=== PATIENT | female | born 1940 | race Caucasian/White ===

== ENCOUNTER 2016-07-15 23:53 | Inpatient (IN) | payer OTHER ==
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
--- NOTE | ~2016-07-15 | DS ---
Discharge Summary [facility] [address] [place]. [address] NAME: HELEN EMMANUEL : 44 STATUS : DIS IN PAT#: [id number] AGE: 76 ADM/REG DATE : 07/16/16 MR#: [id number] REPORT SERV DATE: 07/27/16 DICTATED BY: NIKCIE GRANDA DATE: 07/26/16 REPORT STATUS : Draft TRANSCRIBED BY: MODL DATE: 07/26/16 ADMISSION DATE: 07/16/2016 DISCHARGE DATE: 07/26/2016 FINAL DIAGNOSES: Status post L4-L5 laminectomy, L3-L4 hemilaminectomy for spinal stenosis, status post acute chronic kidney disease, hypertension, status post orthostasis, diabetes, obstructive sleep apnea, hyperlipidemia, obesity, anxiety, and depression. HOSPITAL COURSE: Please refer to the H and P done by Dr. Proctor dated on 07/16/2016 and the interim discharge summary done by Dr. Colón dated on 07/25/2016. Since I took care of this patient, the patient's renal function is back to her baseline and her blood pressure is back to her baseline. Her diabetes is better controlled than on admission, and the patient underwent operation ready. We got clearance from Dr. Kumar for transfer to rehab, and we finally got [facility] [place] to approve her to stay. The patient will be going there with the above diagnosis. The patient will be on the following medications. Norvasc 5 mg a day, Lipitor 40 mg at bedtime, Colace 100 mg three times a day, Cymbalta 60 mg a day, gabapentin 600 mg three times a day, iron 325 mg a day, subcu insulin protocol level 2, NovoLog 8 units before meals, Lumigan one drop at bedtime, Lidoderm patches at affected area daily, lisinopril 40 mg a day, Zyrtec 10 mg a day, magnesium oxide 250 mg a day, Singulair 10 mg a day, multivitamin once a day, Dexilant 60 mg a day, Mirapex 0.125 mg at bedtime, Mysoline 50 mg twice a day, Florastor capsules one capsule a day, Levemir 30 units at bedtime, Combivent four times a day as needed, vitamin C daily 1000 units, vitamin D 2000 units a day, artificial tears as needed, Flonase two sprays a day as needed, melatonin 1 mg at bedtime as needed, and a prescription was done by Dr. Kumar for oxycodone 5 mg one tab q.4 hours p.r.n. pain. The patient will follow up with the rehab doctor, then follow up with [facility] after rehab discharge. She will follow up with Dr. Kumar in two weeks. This has been explained to the patient and she agreed and understood the plan. RICARDO/MAKENNA Nickie Granda M.D. / [id number] CC: Lety Mcarthur M.D.
--- NOTE | ~2016-07-15 | OP ---
Record Of Operation [facility] [address] [place]. [address] NAME: HELEN EMMANUEL : 42 STATUS : ADM IN PAT#: [id number] AGE: 76 ADM/REG DATE : 07/16/16 MR#: [id number] REPORT SERV DATE: 07/22/16 DICTATED BY: DEMARCUS SHARIF DATE: 07/22/16 REPORT STATUS : Draft TRANSCRIBED BY: MODL DATE: 07/22/16 DATE OF PROCEDURE: 07/22/2016 PREOPERATIVE DIAGNOSIS: 1. Severe spinal stenosis of L4-5 requiring bilateral facetectomy. 2. Iatrogenic instability secondary to severe spinal stenosis of L4-5 requiring bilateral facetectomy. 3. Severe spinal stenosis, right L5-S1. POSTOPERATIVE DIAGNOSIS: 1. Severe spinal stenosis of L4-5 requiring bilateral facetectomy. 2. Iatrogenic instability secondary to severe spinal stenosis of L4-5 requiring bilateral facetectomy. 3. Severe spinal stenosis, right L5-S1. PROCEDURES: 1. Microscopic and navigation assisted surgery. 2. Left and right L4-5 hemilaminectomy, foraminotomy, and facetectomy. 3. Roderick posterior column osteotomy. 4. Transforaminal diskectomy. 5. Anterior interbody Capstone cage insertion. 6. Posterolateral interbody fusion with local bone graft allograft. 7. Posterior percutaneous instrumentation with Voyager system L4-5. 8. Right L5-S1 hemilaminotomy and foraminotomy. SURGEON: Demarcus Sharif D.O. CAR SANDER: Derek Neal. ANESTHESIA: General. BLOOD LOSS: 125 mL. INDICATION FOR SURGERY: Indications for surgery and risks were explained. Briefly, this is a 76-year-old female with severe intractable back pain and leg pains that is extremely limited in her any attempts to walk. She has an MRI showing complete obliteration of the spinal canal at L4-5 due to ligamentum flavum and facet hypertrophy as well as bilateral synovial cyst. There is a significant fluid within the facet joints which is associated with instability approximately 80% of the time and clearly with the severe degree of stenosis, she still would have to have a bilateral facetectomy, thus instability would be created and need re-stabilization which will be carried out through the transforaminal diskectomy interbody fusion. Posterior instrumentation would re-provide the temporary re- stabilization until the fusion occurs. In addition, she has severe lateral recess stenosis on the right at L5-S1. The MRI report says she has moderate stenosis at L2-3 and central stenosis at L3-4 but on my review, I do not see significant central stenosis. There is mild to moderate lateral recess stenosis at L3-4 but her symptoms are much more in keeping with Record Of Operation [facility] [id number] [place]. [address] NAME: HELEN EMMANUEL : 42 STATUS : ADM IN PAT#: [id number] AGE: 76 ADM/REG DATE : 07/16/16 MR#: [id number] REPORT SERV DATE: 07/22/16 DICTATED BY: DEMARCUS SHARIF DATE: 07/22/16 REPORT STATUS : Draft TRANSCRIBED BY: MAKENNA DATE: 07/22/16 the L4-5 and S1 nerve roots. Thus she is brought to surgery for the above procedure, having failed conservative care. Prior to surgery, risks, benefits, alternatives, and expectations have been explained. Consent form has been signed. Antibiotic prophylaxis given. Neurophysiology monitoring leads inserted. The patient was brought to the operative suite. General anesthetic including endotracheal intubation was administered. Medrano catheter was placed with sterile technique. The patient was placed prone on a Shan spine frame. Bony prominences were carefully padded. Thoracolumbar spine scrubbed with Hibiclens solution. DuraPrep was painted and sterile drapes applied. Because of the complexity of surgery and the need to identify the correct level of surgery intraoperatively as well as desire to carry out the safest most precise dissection, I felt that intraoperative navigation is mandatory. A small stab wound was carried out in the left posterior superior iliac spine. A percutaneous pin with navigational frame attached was inserted in PSIS. Intraoperative CT scan with O-arm obtained, CT information used to register the navigational system. With navigational assistance, I identified initially the L5-S1 level and just right of midline, a 2 cm skin incision was carried out. A blunt navigated probe placed through the fascial muscle and docked over the interlaminar space at L5-S1. Muscle dilators were inserted followed by placement of a tubular retractor, attached to an arm mount on the table. The microscope was sterilely draped and used throughout the remainder of the procedure. With navigational assistance, I determined the amount of lamina of L5 to remove as well as the amount of medial facet joint to remove in order to reach the lateral aspect of the thecal sac. I used a 3 mm hilton bur and I removed 20% to 30% of the inferior lamina of L5 as well as 25% of the medial facet joint of L5-S1. There was severe inferior ligamentum flavum hypertrophy that was causing nerve and thecal sac impingement. The ligamentum flavum was completely removed, the medial aspect of the facet joint removed, and the thecal sac and the S1 nerve root were completely decompressed. The wound was irrigated. The retractor removed. Next I continued on the right side just lateral to the facet joint of L4-5. I created a 2.5 to 3 cm skin incision. A blunt navigated probe placed through the fascia and muscle and docked over the facet joint. Muscle dilators were inserted followed by placement of a tubular retractor attached to an arm mount on the table. The microscope was sterilely draped and used throughout the remainder of the remainder of the procedure. With navigational assistance. I determined the location of the top of the pedicle of L5 and the inferior pedicle of L4. I started lateral and dissected from lateral to medial removing the entire superior facet of L5 down to the top of the pedicle, the inferior facet of L4, the lamina of L4, and the pars interarticularis. There was extremely severe ligamentum flavum hypertrophy as well as facet hypertrophy. In addition, at the very top of the facet joint, there was a synovial cyst that was encroaching on the medial aspect of the thecal sac just above the disk space and causing a severe impingement on the thecal sac as well as the Record Of Operation [address] [place]. [address] NAME: HELEN EMMANUEL JULY : 42 STATUS : ADM IN PAT#: [id number] AGE: 76 ADM/REG DATE : 07/16/16 MR#: [id number] REPORT SERV DATE: 07/22/16 DICTATED BY: DEMARCUS SHARIF DATE: 07/22/16 REPORT STATUS : Draft TRANSCRIBED BY: MAKENNA DATE: 07/22/16 exiting L4 nerve root. The synovial cyst was removed completely. The patient then had a transforaminal diskectomy with curettes, rongeurs, and disk phillip. The exiting and traversing nerve root was completely decompressed. The wounds were irrigated. Also please note that a Roderick osteotomy posteriorly was carried out on the right side to allow some increase in overall lordosis. I then moved to the left side. I carried out another 3 cm skin incision just lateral to the facet joint. I placed a blunt navigated probe through the fascia and muscle and docked over the facet joint of L4-5. I then carried out the same identical hemilaminectomy, foraminotomy, facetectomy and removal of synovial cyst as well as the Roderick osteotomy. A transforaminal diskectomy completed. The wounds were irrigated. Intradiscal trial was carried out. The interbody space filled with local bone graft allograft and an extra-small dosage of bone protein. Capstone Cage 11 x 26 inserted through the transforaminal approach into the midline against the anterior longitudinal ligament. Some additional posterolateral interbody grafting was carried out. The retractor was then removed. Through the two previous skin incisions, I placed a percutaneous Voyager pedicle tap and screw pallet stone inserter. I tapped the pedicles and followed by placement of polyaxial Voyager screw with screw extenders at L4 and 5. The 35 mm michael was placed through the top portion of the screw extenders, reduced into the tulip of the pedicle screw. The set screws inserted and tightened with a torque wrench providing rigid stability bilaterally. Screw extenders removed. The intraoperative CT scan with O-arm repeated showing excellent position of all implants. After final irrigation, the fascia was closed with interrupted #1 Vicryl suture. The subcutaneous tissue was closed with 2-0 Vicryl sutures, 2-0 vertical mattress nylon suture used for skin closure. Sterile dressings applied. The patient returned to the supine position, awakened, extubated, taken to the recovery room in satisfactory condition, having tolerated the procedure well. HELADIO/MODGavin Demarcus Sharif D.O. / [id number] CC: Lety Brambila M.D.
--- NOTE | ~2016-07-15 | DS ---
Discharge Summary [facility] [address] [facility] [place]. [address] NAME: HELEN EMMANUEL : 42 STATUS : ADM IN [facility]#: [id number] AGE: 76 ADM/REG DATE : 07/16/16 MR#: [id number] REPORT SERV DATE: 07/25/16 DICTATED BY: MARIA GUADALUPE CARDENAS DATE: 07/24/16 REPORT STATUS : Draft TRANSCRIBED BY: MODL DATE: 07/24/16 ADMISSION DATE: 07/16/2016 DISCHARGE DATE: DIAGNOSES ON DISCHARGE: 1. Spinal stenosis status post L4 and L5 laminectomy as well as L3 and L4 hemilaminectomy for severe spinal stenoses, also foraminectomy and facetectomy performed by Dr. Demarcus Kumar on 07/22/2016. 2. Acute on chronic kidney disease, stage 3, resolved. 3. Hypertension. 4. Diabetes type 2, insulin dependent with hemoglobin A1c 8.6. 5. Hyperlipidemia. 6. Obesity. 7. Obstructive sleep apnea, on CPAP. 8. Peripheral neuropathy. 9. Chronic back pain. 10.Hyperlipidemia. 11.Morbid obesity. CONSULTANTS ON THE CASE: Dr. Demarcus Kumar, Back Surgery. PROCEDURE DONE: During this hospitalization include left and right L4-L5 hemilaminectomy, foraminectomy, and facetectomy as well as L5-S1 hemilaminectomy and facetectomy. Other tests done during this hospitalization would include an MRI of the lumbar spine on 07/17/2016 showing that the patient has severe stenosis of L4-L5 as well as L1-L2, L2-L3, L3 L4, and L5-S1. Also, the patient has had a chest x-ray, portable, on 07/15/2016 with left basilar atelectasis, showing moderate degenerative disease, hip showed no acute bone abnormalities, [id number] degenerative joint disease of the left hip. Also, the patient had UA on 07/16/2016 that has been negative. Her hemoglobin A1c was 8.6, BNP 23.2. Creatinine on admission was 2.09, and 0.35 at discharge. The patient has been ruled out for AL by serial cardiac enzymes and serial EKG. Her TSH was 1.45. HOSPITAL COURSE: This is a very pleasant 76 years old female, admitted by Dr. Omar Proctor on 07/16/2016 with dizziness, fall, and weight loss. The patient has been found to be in acute on chronic stage 3 kidney disease. For further details, please see history and physical exam of Dr. Omar Proctor. The patient has been admitted to Hospitalist Service. Her AUDI and diuretics have been withheld. She has been placed on hydration and her acute kidney injury resolved with IV fluids and holding the AUDI and Demadex. However, the patient had been complaining of severe back pain, right greater than left as well as leg pain. Apparently in the past, she has had that long history of low back pain starting in the mid adult life. After the MRI had been ordered during this hospitalization, back pain had become extremely severe and result of the MRI has shown that the patient has severe spinal stenosis. As a result, the back surgeon, Dr. Kumar had been consulted. Initially, after discussion with the patient, they tried physical therapy while she was in the hospital and observation and obviously, the patient would not be a candidate for any epidural injection and after 2 days Discharge Summary [address] [address] NAME: HELEN EMMANUEL : 44 STATUS : ADM IN PAT#: [id number] AGE: 76 ADM/REG DATE : 07/16/16 MR#: [id number] REPORT SERV DATE: 07/25/16 DICTATED BY: MARIA GUADALUPE CARDENAS DATE: 07/24/16 REPORT STATUS : Draft TRANSCRIBED BY: MAKENNA DATE: 07/24/16 of physical therapy, the patient had decided to perform surgery. On 07/22/2016, the patient was taken to the OR for re-stabilization of the L4-L5, and the patient underwent a laminectomy of the L4-L5 with hemilaminectomy, foraminectomy, facetectomy as well as L5-S1 hemilaminectomy. Postoperatively, the patient started working with the Physical Therapy. She is undergoing postop care currently. Most likely, the patient will need inpatient rehab at discharge. Her acute kidney injury has been completely resolved, and she has been restarted on her lisinopril today. CURRENT MEDICATIONS: 1. Tylenol 650 twice a day. 2. Amlodipine 5 p.o. daily. 3. Lipitor 40 p.o. at bedtime. 4. Colace 100, three times a day. 5. Also, Cymbalta 60 p.o. daily. 6. Iron sulfate 300 p.o. daily. 7. Gabapentin 600 t.i.d. 8. NovoLog sliding scale level 2. 9. Xalatan ophthalmic solution. 10.Lidoderm patch. 11.Claritin. 12.Magnesium oxide. 13.Singulair. 14.Multivitamin. 15.Protonix. 16.Mirapex. 17.Mysoline. 18.Florastor. 19.Levemir 20 units at bedtime. My partner is going to start seeing Ms. Fred Johnson from 07/26/2016. CF/MODL Maria Guadalupe Cardenas M.D. / [id number] CC: Lety Siu M.D.
--- NOTE | ~2016-07-15 | HP ---
History And Physical [place] [id number] [facility] [place]. [address] NAME: HELEN EMMANUEL : 44 STATUS : ADM Kiana PAT#: [id number] AGE: 76 ADM/REG DATE : 07/16/16 MR#: [id number] REPORT SERV DATE: 07/16/16 DICTATED BY: CORIN MEJIA DATE: 07/16/16 REPORT STATUS : Draft TRANSCRIBED BY: MODL DATE: 07/16/16 DATE OF ADMISSION: 07/16/2016 CHIEF COMPLAINT: A 76-year-old female presenting with dizziness, a fall, and weight loss. HISTORY OF PRESENTING ILLNESS: The patient's history was obtained through careful interview with patient, coupled with review of [facility] medical records. The patient states that she has been dizzy for about two days with lightheadedness. On the night of admission, she was trying to get out of her chair, felt too weak and dizzy and collapsed to the ground. She had to scoot herself into the living room to get her phone. She admits that since the beginning of May 2016 she has been going on a Slim-Fast diet and has lost about 13 pounds, but overall, she just describes a decreased appetite, but she denies any dysphagia. No abdominal pain. No nausea or vomiting. No change of bowel or bladder habit. In early May 2016, she had suffered some bronchitis and taken some antibiotics, but has not had any significant shortness of breath or cough since then. She describes chronic right-sided and middle lower back pain that radiates down her right leg, like sciatica and sometimes affects her left hip slightly as well, an aching and throbbing quality, up to 10/10 in severity, but she admits that this is a chronic recurrent condition. She describes diabetes is generally under good control, under 200. REVIEW OF SYSTEMS: Otherwise, a 14-point review of systems was obtained and was negative. PAST MEDICAL HISTORY: 1. Obstructive sleep apnea, on CPAP. 2. Diabetes. 3. Hypertension. 4. Chronic arthritis. 5. Chronic kidney disease, stage III. Baseline creatinine of 1.5. 6. Elevated cholesterol. 7. Neuropathy. 8. Fatty liver disease. 9. Gastroesophageal reflux disorder. 10.Iron deficiency anemia. 11.Neuropathy. 12.Depression. 13.Negative catheterization of the heart. PAST SURGICAL HISTORY: History And Physical [address] [place]. [address] NAME: HELEN EMMANUEL : 44 STATUS : ADM Kiana PAT#: [id number] AGE: 76 ADM/REG DATE : 07/16/16 MR#: [id number] REPORT SERV DATE: 07/16/16 DICTATED BY: CORIN MEJIA DATE: 07/16/16 REPORT STATUS : Draft TRANSCRIBED BY: MAKENNA DATE: 07/16/16 1. Left hip surgery. 2. Left leg lesion removal. 3. D and C x2. ALLERGIES: INCLUDES AN INCREDIBLY LARGE LIST CATS AND FELINE PRODUCTS, DIPYRIDAMOLE, MASSENGILL, VAGISIL, MIDRIN, HYDROXYZINE, CODEINE, HYDROCODONE, PSEUDOEPHEDRINE, RAGWEED, DRAMAMINE, MAREZINE, TRAMADOL, DEMEROL, PROPRANOLOL, MECLIZINE, CHICKWEED, LEXAPRO, NYLON, CARBONATED BEVERAGES, AND CHLORINE. SOCIAL HISTORY: No tobacco abuse. No alcohol abuse. Lives alone. Has one daughter, who lives 10 minutes away. FAMILY HISTORY: Diabetes, heart disease, and congestive heart failure. Mother with kidney disease. CURRENT MEDICATIONS: Include albuterol inhaler, Norvasc 2.5 mg daily, eye drops, vitamin C, Lipitor 40 mg daily, Zyrtec, vitamin D, Dexilant 60 mg p.o. daily, Cymbalta 60 mg p.o. daily, iron supplement, Flonase, Neurontin 600 mg p.o. t.i.d., Lantus 55 units subcutaneous at bedtime, Humalog 15 units with each meal, Combivent, Lidoderm patch, lisinopril 40 mg daily, magnesium 250 mg daily, melatonin at bedtime, mometasone cream, Singulair 10 mg daily, multivitamin, calcium, Mirapex, primidone 50 mg p.o. b.i.d., Demadex 10 mg in the morning, and probiotics. PHYSICAL EXAMINATION: VITAL SIGNS: Temperature 98.5, pulse 62, blood pressure 118/57, respiratory rate 16, and O2 saturation 100% on room air. GENERAL: A pleasant, cooperative female. She does not appear in any particular distress. HEENT: Pupils are equal, round, and reactive to light. No conjunctival pallor. No scleral icterus. Nares are patent. Oropharynx is clear of obstruction. Dry mucous membranes. NECK: Trachea midline. No thyromegaly. LYMPH: No cervical lymphadenopathy. No supraclavicular lymphadenopathy. RESPIRATORY: Clear to auscultation at bases. No wheezes, rales, or rhonchi. Normal respiratory effort. CARDIOVASCULAR: Regular rate and rhythm. No murmurs, rubs, or gallops. No extremity edema is appreciated. ABDOMEN: Soft, nontender, and nondistended. Normal bowel sounds auscultated throughout. No hepatosplenomegaly. DERMATOLOGICAL: Warm and dry extremities. No pallor. No cyanosis. PSYCHIATRIC: A flat affect, a discouraged mood, but she denies depression currently. She is alert and oriented x3. LABORATORY DATA: White blood cell count 9.0, hemoglobin 12, hematocrit 36, and platelets 260. Sodium 137, potassium 3.9, chloride 98, bicarb 29, BUN 69, creatinine 2.09 from baseline creatinine of 1.4, and glucose 285. Troponin negative. Liver enzymes within limits. History And Physical [address] [address] NAME: HELEN EMMANUEL : 44 STATUS : ADM Kiana PAT#: [id number] AGE: 76 ADM/REG DATE : 07/16/16 MR#: [id number] REPORT SERV DATE: 07/16/16 DICTATED BY: CORIN MEJIA DATE: 07/16/16 REPORT STATUS : Draft TRANSCRIBED BY: MAKENNA DATE: 07/16/16 STUDIES: 1. Chest x-ray by my own evaluation shows no acute cardiopulmonary process. 2. EKG by my own evaluation shows sinus rhythm, left bundle-branch block, widening of the QRS at least. ASSESSMENT AND PLAN: 1. Acute kidney injury. Place on IV fluids. Hold Demadex. 2. Dizzy spells. Check orthostatics. The patient has borderline low blood pressure. We will be holding Demadex. Writing parameters for blood pressure medications. We will try some IV fluids. 3. Diabetes. Check hemoglobin A1c. Place on sliding scale insulin and home medications including basal insulin and premeal insulin. 4. Obstructive sleep apnea. Continue CPAP. KASIA/MAKENNA Corin Mejia M.D. / [id number] CC: Lety Mcarthur M.D.
[~2016-07-15 23:53] MED LIST: ALAVERT10 MG PO; CALCIUM PO; COMBIVENT RESPIM4 GM INH; CYMBALTA60 PO; DEMA10T PO; DEMA20 PO; DEXILANT; FLONASE NAS; GLUCOPHAGE1000 MG PO; GLUCXL10 PO; HUMALOG SC; IRON; IRON325 MG PO; KAPIDEX60 MG PO; LANTUS SC; LIPITOR40 PO; LISINOPRIL40 MG PO; LUMIGAN2.5 ML OP; LUMIGAN2.5 ML OPH; MAX FREEZE T; MIRAPEX125 PO; NEUR600 PO; PRIM50B PO; TEARS NATURA OPH; TYLENOL ARTH650 MG PO; TYLENOL PO; VENTOLIN HFA INH; VITAMIN D1000 UNI1 PO; VITC500 PO; XALAT OPH; ZAROX2.5B PO; ZOCOR40 PO; ZYRTEC ALLGY10 MG PO
[2016-07-16 00:23] LABS: BASOPHILS 0.2 %; BASOPHILS ABSOLUTE 0.02 10/3/uL (0.0-0.16); EOSINOPHILS 0.9 %; EOSINOPHILS ABSOLUTE 0.08 10/3/uL (0.0-0.53); HEMATOCRIT 35.8 % (36.0-48.0); HEMOGLOBIN 11.9 g/dL (12.0-16.0); IMMATURE GRANULOCYTES 0.2 %; IMMATURE GRANULOCYTES ABSOLUTE 0.02 10/3/uL (0.0-0.11); LYMPHOCYTES 16.4 %; LYMPHOCYTES ABSOLUTE 1.48 10/3/uL (0.67-4.30); MEAN CORPUSCULAR HEMOGLOB 31.1 pg (26.0-34.0); MEAN CORPUSCULAR VOLUME 93.5 fL (80-100); MEAN PLATELET VOLUME 11.1 fL (9.2-13.0); MONOCYTES 5.4 %; MONOCYTES ABSOLUTE 0.49 10/3/uL (0.21-1.20); NEUTROPHILS 76.9 %; NEUTROPHILS ABSOLUTE 6.93 10/3/uL (2.02-8.40); PLATELET COUNT 260 10/3/uL (150-400); RBC DISTRIBUTION WIDTH 13.5 % (12.0-16.0); RED CELL COUNT 3.83 10/6/uL (4.0-5.6)
[2016-07-16 00:24] LABS: ER CBC TAT 0 Hrs 07 Mins; MANUAL DIFF NO %; MEAN CORPUS HGB CONC 33.2 g/dL (32.0-36.0)
[2016-07-16 00:47] LABS: ALBUMIN 3.2 G/DL (3.5-5.0); CALCIUM, SERUM 9.3 MG/DL (8.5-10.4); CHLORIDE, SERUM 98 MMOL/L (96-112); CO2 (CARBON DIOXIDE) 29 MMOL/L (24-34); POTASSIUM, SERUM 3.9 MMOL/L (3.5-5.3); SGOT(AST) 21 U/L (5-40); SGPT(ALT) 25 U/L (5-65); SODIUM, SERUM 137 MMOL/L (135-148); TOTAL BILIRUBIN 0.3 MG/DL (0-1.2); TOTAL PROTEIN 7.1 G/DL (6.0-8.5); TROPONIN I <0.02 NG/ML (<0.05)
[2016-07-16 00:48] LABS: A/G RATIO 0.8 (0.7-1.9); ALKALINE PHOSPHATASE 70 U/L (45-117); BUN (BLOOD UREA NITROGEN) 69 MG/DL (6-23); CREATININE 2.09 MG/DL (0.55-1.02); GFR AFRICAN AMERICAN 26 ML/MIN (>=60); GFR NON AFRICAN AMERICAN 23 ML/MIN (>=60); GLOBULIN 3.9 G/DL (2.5-4.1); GLUCOSE, SERUM 285 MG/DL (60-99)
[2016-07-16] MEDS ORDERED: NORV25 PO ×2 (01:57→01:58)
[2016-07-16] MEDS ORDERED: MAG OXIDE250 MG PO (02:00)
[2016-07-16] MEDS ORDERED: MULTIPLE VIT PO (02:00)
[2016-07-16] MEDS ORDERED: FLONASE NAS (02:01)
[2016-07-16] MEDS ORDERED: LIDODERM TOP (02:02)
[2016-07-16] MEDS ORDERED: MELATONIN1 M1 PO (02:02)
[2016-07-16] MEDS ORDERED: SINGULAIR1 PO (02:03)
[2016-07-16] MEDS ORDERED: ELOCON CREAM 0.15 GM TOP (02:03)
[2016-07-16] MEDS ORDERED: VENTOLIN HFA INH (02:17)
[2016-07-16] MEDS ORDERED: OYST-CAL500 MG PO (02:25)
[2016-07-16] MEDS ORDERED: PROBIOTIC PO (02:26)
[2016-07-16 12:04] LABS: BASOPHILS 0.3 %; BASOPHILS ABSOLUTE 0.02 10/3/uL (0.0-0.16); EOSINOPHILS 1.8 %; EOSINOPHILS ABSOLUTE 0.14 10/3/uL (0.0-0.53); HEMATOCRIT 34.7 % (36.0-48.0); HEMOGLOBIN 11.1 g/dL (12.0-16.0); IMMATURE GRANULOCYTES 0.1 %; IMMATURE GRANULOCYTES ABSOLUTE 0.01 10/3/uL (0.0-0.11); LYMPHOCYTES 29.4 %; LYMPHOCYTES ABSOLUTE 2.28 10/3/uL (0.67-4.30); MANUAL DIFF NO %; MEAN CORPUSCULAR HEMOGLOB 30.7 pg (26.0-34.0); MEAN CORPUSCULAR VOLUME 95.9 fL (80-100); MEAN PLATELET VOLUME 11.2 fL (9.2-13.0); MONOCYTES 6.3 %; MONOCYTES ABSOLUTE 0.49 10/3/uL (0.21-1.20); NEUTROPHILS 62.1 %; NEUTROPHILS ABSOLUTE 4.81 10/3/uL (2.02-8.40); PLATELET COUNT 264 10/3/uL (150-400); RBC DISTRIBUTION WIDTH 13.9 % (12.0-16.0); RED CELL COUNT 3.62 10/6/uL (4.0-5.6); WHITE BLOOD CELLS 7.8 10/3/uL (4.5-10.5)
[2016-07-16 12:16] LABS: INTERNATIONAL NORMAL RATI 1.1 UNITS (-); PARTIAL THROMBO TIME 38.8 SEC (22.5-37.2); PROTIME (NOT ORD) 14.2 SEC (12.0-14.5)
[2016-07-16 12:26] LABS: B NATRIURETIC PEPTIDE (BNP) 23.2 PG/ML (< 100.0)
[2016-07-16 12:28] LABS: A/G RATIO 0.8 (0.7-1.9); ALBUMIN 2.9 G/DL (3.5-5.0); ALKALINE PHOSPHATASE 70 U/L (45-117); CALCIUM, SERUM 8.7 MG/DL (8.5-10.4); CHLORIDE, SERUM 101 MMOL/L (96-112); CO2 (CARBON DIOXIDE) 30 MMOL/L (24-34); CREATININE 1.86 MG/DL (0.55-1.02); GFR AFRICAN AMERICAN 30 ML/MIN (>=60); GFR NON AFRICAN AMERICAN 26 ML/MIN (>=60); GLOBULIN 3.6 G/DL (2.5-4.1); GLUCOSE, SERUM 245 MG/DL (60-99); POTASSIUM, SERUM 3.7 MMOL/L (3.5-5.3); SGOT(AST) 23 U/L (5-40); SGPT(ALT) 24 U/L (5-65); SODIUM, SERUM 139 MMOL/L (135-148); TOTAL BILIRUBIN 0.3 MG/DL (0-1.2); TOTAL PROTEIN 6.5 G/DL (6.0-8.5); TROPONIN I <0.02 NG/ML (<0.05)
[2016-07-16 12:29] LABS: BUN (BLOOD UREA NITROGEN) 59 MG/DL (6-23); CK-MB 2.3 NG/ML; CPK 175 U/L (0-200)
[2016-07-16 23:42] LABS: ASCORBIC ACID (UR NOT ORDER) 20 (NEG); BILIRUBIN, URINE NEGATIVE (NEG); KETONE, URINE NEGATIVE (NEG); LEUKOCYTE ESTERASE(NOT OR NEG (NEG); WBC (NOT ORDERED) (RFLEX) 1 (0-5)
[2016-07-17 07:13] LABS: BUN (BLOOD UREA NITROGEN) 46 MG/DL (6-23); CALCIUM, SERUM 9.6 MG/DL (8.5-10.4); CHLORIDE, SERUM 104 MMOL/L (96-112); CO2 (CARBON DIOXIDE) 31 MMOL/L (24-34); CREATININE 1.43 MG/DL (0.55-1.02); GFR AFRICAN AMERICAN 42 ML/MIN (>=60); GFR NON AFRICAN AMERICAN 36 ML/MIN (>=60); GLUCOSE, SERUM 64 MG/DL (60-99); POTASSIUM, SERUM 3.8 MMOL/L (3.5-5.3); SODIUM, SERUM 141 MMOL/L (135-148)
[2016-07-17 07:22] LABS: GLYCOHEMOGLOBIN (HbA1c) 8.6 % (4.7-6.1)
[2016-07-18 04:57] LABS: BASOPHILS 0.3 %; BASOPHILS ABSOLUTE 0.02 10/3/uL (0.0-0.16); EOSINOPHILS 3.9 %; EOSINOPHILS ABSOLUTE 0.28 10/3/uL (0.0-0.53); HEMATOCRIT 32.7 % (36.0-48.0); HEMOGLOBIN 10.9 g/dL (12.0-16.0); IMMATURE GRANULOCYTES 0.3 %; IMMATURE GRANULOCYTES ABSOLUTE 0.02 10/3/uL (0.0-0.11); LYMPHOCYTES 38.4 %; LYMPHOCYTES ABSOLUTE 2.79 10/3/uL (0.67-4.30); MEAN CORPUS HGB CONC 33.3 g/dL (32.0-36.0); MEAN CORPUSCULAR HEMOGLOB 31.1 pg (26.0-34.0); MEAN CORPUSCULAR VOLUME 93.4 fL (80-100); MEAN PLATELET VOLUME 11.3 fL (9.2-13.0); MONOCYTES 6.6 %; MONOCYTES ABSOLUTE 0.48 10/3/uL (0.21-1.20); NEUTROPHILS 50.5 %; NEUTROPHILS ABSOLUTE 3.67 10/3/uL (2.02-8.40); PLATELET COUNT 243 10/3/uL (150-400); RBC DISTRIBUTION WIDTH 13.8 % (12.0-16.0); WHITE BLOOD CELLS 7.3 10/3/uL (4.5-10.5)
[2016-07-18 04:58] LABS: MANUAL DIFF NO %
[2016-07-18 05:10] LABS: CALCIUM, SERUM 10.5 MG/DL (8.5-10.4); CHLORIDE, SERUM 106 MMOL/L (96-112); CO2 (CARBON DIOXIDE) 28 MMOL/L (24-34); CREATININE 1.45 MG/DL (0.55-1.02); GFR AFRICAN AMERICAN 41 ML/MIN (>=60); GFR NON AFRICAN AMERICAN 35 ML/MIN (>=60); POTASSIUM, SERUM 4.5 MMOL/L (3.5-5.3); SODIUM, SERUM 142 MMOL/L (135-148)
[2016-07-18 05:12] LABS: BUN (BLOOD UREA NITROGEN) 39 MG/DL (6-23); GLUCOSE, SERUM 103 MG/DL (60-99)
[2016-07-20 05:19] LABS: HEMATOCRIT 34.2 % (36.0-48.0); HEMOGLOBIN 11.7 g/dL (12.0-16.0); MEAN CORPUS HGB CONC 34.2 g/dL (32.0-36.0); MEAN CORPUSCULAR HEMOGLOB 32.3 pg (26.0-34.0); MEAN CORPUSCULAR VOLUME 94.5 fL (80-100); MEAN PLATELET VOLUME 12.9 fL (9.2-13.0); NUCLEATED RED BLOOD CELLS 15.2 /100WBC (0-0); PLATELET COUNT 294 10/3/uL (150-400); RBC DISTRIBUTION WIDTH 13.9 % (12.0-16.0); RED CELL COUNT 3.62 10/6/uL (4.0-5.6); WHITE BLOOD CELLS 6.4 10/3/uL (4.5-10.5)
[2016-07-20 05:20] LABS: MANUAL DIFF YES %
[2016-07-20 05:43] LABS: BAND NEUTROPHILS 1 %; EOSINOPHILS 4 %; EOSINOPHILS ABSOLUTE (CALC) 0.26 10/3/uL (0.0-0.53); LYMPHOCYTES 36 %; MONOCYTES 5 %; MONOCYTES ABSOLUTE (CALC) 0.32 10/3/uL (0.21-1.20); NEUTROPHILS ABSOLUTE (CALC) 3.52 10/3/uL (2.02-8.40); PLATELET ESTIMATE ADQ (ADEQUATE); RBC MORPHOLOGY NORM (NORMAL); SEGMENTED NEUTROPHIL (0) 54 %; TOTAL NUCLEATED CELLS 100
[2016-07-20 06:09] LABS: A/G RATIO 0.9 (0.7-1.9); ALKALINE PHOSPHATASE 63 U/L (45-117); BUN (BLOOD UREA NITROGEN) 33 MG/DL (6-23); CALCIUM, SERUM 10.6 MG/DL (8.5-10.4); CHLORIDE, SERUM 103 MMOL/L (96-112); CO2 (CARBON DIOXIDE) 30 MMOL/L (24-34); CREATININE 1.24 MG/DL (0.55-1.02); GFR AFRICAN AMERICAN 50 ML/MIN (>=60); GFR NON AFRICAN AMERICAN 43 ML/MIN (>=60); GLOBULIN 3.4 G/DL (2.5-4.1); GLUCOSE, SERUM 125 MG/DL (60-99); POTASSIUM, SERUM 4.5 MMOL/L (3.5-5.3); SGOT(AST) 51 U/L (5-40); SGPT(ALT) 48 U/L (5-65); SODIUM, SERUM 138 MMOL/L (135-148); TOTAL BILIRUBIN 0.3 MG/DL (0-1.2); TOTAL PROTEIN 6.4 G/DL (6.0-8.5)
[2016-07-20 10:34] LABS: INTERNATIONAL NORMAL RATI 0.9 UNITS (-)
[2016-07-21 05:40] LABS: BASOPHILS 0.4 %; BASOPHILS ABSOLUTE 0.03 10/3/uL (0.0-0.16); EOSINOPHILS 4.3 %; EOSINOPHILS ABSOLUTE 0.29 10/3/uL (0.0-0.53); HEMATOCRIT 33.1 % (36.0-48.0); IMMATURE GRANULOCYTES 0.1 %; IMMATURE GRANULOCYTES ABSOLUTE 0.01 10/3/uL (0.0-0.11); LYMPHOCYTES 39.4 %; LYMPHOCYTES ABSOLUTE 2.67 10/3/uL (0.67-4.30); MEAN CORPUS HGB CONC 33.2 g/dL (32.0-36.0); MEAN CORPUSCULAR HEMOGLOB 31.1 pg (26.0-34.0); MEAN CORPUSCULAR VOLUME 93.5 fL (80-100); MEAN PLATELET VOLUME 11.8 fL (9.2-13.0); MONOCYTES 6.4 %; MONOCYTES ABSOLUTE 0.43 10/3/uL (0.21-1.20); NEUTROPHILS 49.4 %; NEUTROPHILS ABSOLUTE 3.34 10/3/uL (2.02-8.40); PLATELET COUNT 233 10/3/uL (150-400); RBC DISTRIBUTION WIDTH 13.9 % (12.0-16.0); RED CELL COUNT 3.54 10/6/uL (4.0-5.6); WHITE BLOOD CELLS 6.8 10/3/uL (4.5-10.5)
[2016-07-21 05:43] LABS: MANUAL DIFF NO %
[2016-07-21 05:50] LABS: BUN (BLOOD UREA NITROGEN) 31 MG/DL (6-23); CALCIUM, SERUM 9.4 MG/DL (8.5-10.4); CHLORIDE, SERUM 108 MMOL/L (96-112); CO2 (CARBON DIOXIDE) 28 MMOL/L (24-34); CREATININE 1.23 MG/DL (0.55-1.02); GFR AFRICAN AMERICAN 50 ML/MIN (>=60); GFR NON AFRICAN AMERICAN 43 ML/MIN (>=60); GLUCOSE, SERUM 146 MG/DL (60-99); POTASSIUM, SERUM 4.4 MMOL/L (3.5-5.3); SODIUM, SERUM 143 MMOL/L (135-148)
[2016-07-22 10:44] LABS: BASOPHILS 0.3 %; BASOPHILS ABSOLUTE 0.03 10/3/uL (0.0-0.16); EOSINOPHILS 1.9 %; EOSINOPHILS ABSOLUTE 0.21 10/3/uL (0.0-0.53); HEMATOCRIT 33.6 % (36.0-48.0); IMMATURE GRANULOCYTES 0.6 %; IMMATURE GRANULOCYTES ABSOLUTE 0.07 10/3/uL (0.0-0.11); LYMPHOCYTES 37.1 %; LYMPHOCYTES ABSOLUTE 4.13 10/3/uL (0.67-4.30); MEAN CORPUS HGB CONC 32.7 g/dL (32.0-36.0); MEAN CORPUSCULAR HEMOGLOB 31.3 pg (26.0-34.0); MEAN CORPUSCULAR VOLUME 95.5 fL (80-100); MEAN PLATELET VOLUME 11.2 fL (9.2-13.0); MONOCYTES 5.8 %; MONOCYTES ABSOLUTE 0.64 10/3/uL (0.21-1.20); NEUTROPHILS 54.3 %; NEUTROPHILS ABSOLUTE 6.04 10/3/uL (2.02-8.40); PLATELET COUNT 243 10/3/uL (150-400); RBC DISTRIBUTION WIDTH 14.1 % (12.0-16.0); RED CELL COUNT 3.52 10/6/uL (4.0-5.6)
[2016-07-22 10:45] LABS: MANUAL DIFF NO %; WHITE BLOOD CELLS 11.1 10/3/uL (4.5-10.5)
[2016-07-22 10:55] LABS: CHLORIDE, SERUM 111 MMOL/L (96-112); CO2 (CARBON DIOXIDE) 25 MMOL/L (24-34); CREATININE 1.35 MG/DL (0.55-1.02); GFR AFRICAN AMERICAN 45 ML/MIN (>=60); GFR NON AFRICAN AMERICAN 39 ML/MIN (>=60); SODIUM, SERUM 143 MMOL/L (135-148)
[2016-07-22 10:56] LABS: BUN (BLOOD UREA NITROGEN) 26 MG/DL (6-23)
[2016-07-22 10:57] LABS: CALCIUM, SERUM 8.3 MG/DL (8.5-10.4); GLUCOSE, SERUM 226 MG/DL (60-99)
[2016-07-22 14:09] LABS: INTERNATIONAL NORMAL RATI 1.1 UNITS (-); PROTIME (NOT ORD) 13.6 SEC (12.0-14.5)
[2016-07-23 06:43] LABS: BASOPHILS 0.1 %; BASOPHILS ABSOLUTE 0.01 10/3/uL (0.0-0.16); EOSINOPHILS 0.9 %; EOSINOPHILS ABSOLUTE 0.07 10/3/uL (0.0-0.53); HEMATOCRIT 31.7 % (36.0-48.0); HEMOGLOBIN 10.2 g/dL (12.0-16.0); IMMATURE GRANULOCYTES 0.1 %; IMMATURE GRANULOCYTES ABSOLUTE 0.01 10/3/uL (0.0-0.11); LYMPHOCYTES 17.7 %; LYMPHOCYTES ABSOLUTE 1.44 10/3/uL (0.67-4.30); MEAN CORPUS HGB CONC 32.2 g/dL (32.0-36.0); MEAN CORPUSCULAR HEMOGLOB 31.3 pg (26.0-34.0); MEAN CORPUSCULAR VOLUME 97.2 fL (80-100); MEAN PLATELET VOLUME 11.6 fL (9.2-13.0); MONOCYTES 9.7 %; MONOCYTES ABSOLUTE 0.79 10/3/uL (0.21-1.20); NEUTROPHILS 71.5 %; NEUTROPHILS ABSOLUTE 5.83 10/3/uL (2.02-8.40); PLATELET COUNT 219 10/3/uL (150-400); RBC DISTRIBUTION WIDTH 14.3 % (12.0-16.0); RED CELL COUNT 3.26 10/6/uL (4.0-5.6); WHITE BLOOD CELLS 8.2 10/3/uL (4.5-10.5)
[2016-07-23 06:47] LABS: MANUAL DIFF NO %
[2016-07-23 06:49] LABS: CALCIUM, SERUM 8.7 MG/DL (8.5-10.4); CHLORIDE, SERUM 104 MMOL/L (96-112); CO2 (CARBON DIOXIDE) 27 MMOL/L (24-34); CREATININE 1.35 MG/DL (0.55-1.02); GFR AFRICAN AMERICAN 45 ML/MIN (>=60); GFR NON AFRICAN AMERICAN 39 ML/MIN (>=60); POTASSIUM, SERUM 4.5 MMOL/L (3.5-5.3); SODIUM, SERUM 138 MMOL/L (135-148)
[2016-07-23 06:54] LABS: BUN (BLOOD UREA NITROGEN) 21 MG/DL (6-23); GLUCOSE, SERUM 158 MG/DL (60-99)
[2016-07-24 06:57] LABS: BASOPHILS 0.1 %; BASOPHILS ABSOLUTE 0.01 10/3/uL (0.0-0.16); EOSINOPHILS 0.8 %; EOSINOPHILS ABSOLUTE 0.09 10/3/uL (0.0-0.53); HEMATOCRIT 29.7 % (36.0-48.0); HEMOGLOBIN 9.6 g/dL (12.0-16.0); IMMATURE GRANULOCYTES 0.3 %; IMMATURE GRANULOCYTES ABSOLUTE 0.03 10/3/uL (0.0-0.11); LYMPHOCYTES 13.7 %; LYMPHOCYTES ABSOLUTE 1.45 10/3/uL (0.67-4.30); MEAN CORPUS HGB CONC 32.3 g/dL (32.0-36.0); MEAN CORPUSCULAR HEMOGLOB 31.5 pg (26.0-34.0); MEAN CORPUSCULAR VOLUME 97.4 fL (80-100); MEAN PLATELET VOLUME 11.6 fL (9.2-13.0); MONOCYTES 8.5 %; NEUTROPHILS 76.6 %; NEUTROPHILS ABSOLUTE 8.12 10/3/uL (2.02-8.40); PLATELET COUNT 199 10/3/uL (150-400); RBC DISTRIBUTION WIDTH 14.1 % (12.0-16.0); RED CELL COUNT 3.05 10/6/uL (4.0-5.6); WHITE BLOOD CELLS 10.6 10/3/uL (4.5-10.5)
[2016-07-24 07:00] LABS: MANUAL DIFF NO %
[2016-07-24 07:11] LABS: BUN (BLOOD UREA NITROGEN) 19 MG/DL (6-23); CALCIUM, SERUM 8.7 MG/DL (8.5-10.4); CHLORIDE, SERUM 107 MMOL/L (96-112); CO2 (CARBON DIOXIDE) 27 MMOL/L (24-34); CREATININE 1.35 MG/DL (0.55-1.02); GFR AFRICAN AMERICAN 45 ML/MIN (>=60); GFR NON AFRICAN AMERICAN 39 ML/MIN (>=60); GLUCOSE, SERUM 237 MG/DL (60-99); POTASSIUM, SERUM 4.3 MMOL/L (3.5-5.3); SODIUM, SERUM 139 MMOL/L (135-148)
[2016-07-25 05:26] LABS: BUN (BLOOD UREA NITROGEN) 19 MG/DL (6-23); CHLORIDE, SERUM 107 MMOL/L (96-112); CREATININE 1.18 MG/DL (0.55-1.02); GFR AFRICAN AMERICAN 53 ML/MIN (>=60); GFR NON AFRICAN AMERICAN 45 ML/MIN (>=60); GLUCOSE, SERUM 215 MG/DL (60-99); POTASSIUM, SERUM 4.9 MMOL/L (3.5-5.3); SODIUM, SERUM 136 MMOL/L (135-148)
[2016-07-25 05:27] LABS: CO2 (CARBON DIOXIDE) 21 MMOL/L (24-34)
[2016-07-25 05:47] LABS: BASOPHILS 0.1 %; BASOPHILS ABSOLUTE 0.01 10/3/uL (0.0-0.16); EOSINOPHILS 1.1 %; EOSINOPHILS ABSOLUTE 0.11 10/3/uL (0.0-0.53); HEMATOCRIT 30.2 % (36.0-48.0); HEMOGLOBIN 9.4 g/dL (12.0-16.0); IMMATURE GRANULOCYTES 0.2 %; IMMATURE GRANULOCYTES ABSOLUTE 0.02 10/3/uL (0.0-0.11); LYMPHOCYTES 11.3 %; MEAN CORPUS HGB CONC 31.1 g/dL (32.0-36.0); MEAN CORPUSCULAR HEMOGLOB 30.4 pg (26.0-34.0); MEAN CORPUSCULAR VOLUME 97.7 fL (80-100); MEAN PLATELET VOLUME 11.4 fL (9.2-13.0); MONOCYTES ABSOLUTE 0.68 10/3/uL (0.21-1.20); NEUTROPHILS 80.3 %; PLATELET COUNT 191 10/3/uL (150-400); RBC DISTRIBUTION WIDTH 14.1 % (12.0-16.0); RED CELL COUNT 3.09 10/6/uL (4.0-5.6); WHITE BLOOD CELLS 9.7 10/3/uL (4.5-10.5)
[2016-07-25 05:48] LABS: MANUAL DIFF NO %
[2016-07-26 06:41] LABS: BUN (BLOOD UREA NITROGEN) 22 MG/DL (6-23); CALCIUM, SERUM 8.8 MG/DL (8.5-10.4); CHLORIDE, SERUM 104 MMOL/L (96-112); CREATININE 1.23 MG/DL (0.55-1.02); GFR AFRICAN AMERICAN 50 ML/MIN (>=60); GFR NON AFRICAN AMERICAN 43 ML/MIN (>=60); GLUCOSE, SERUM 172 MG/DL (60-99); POTASSIUM, SERUM 4.7 MMOL/L (3.5-5.3); SODIUM, SERUM 138 MMOL/L (135-148)
[2016-07-26 06:45] LABS: CO2 (CARBON DIOXIDE) 26 MMOL/L (24-34)
[2016-07-26 07:27] LABS: BASOPHILS 0.1 %; BASOPHILS ABSOLUTE 0.01 10/3/uL (0.0-0.16); EOSINOPHILS 2.2 %; EOSINOPHILS ABSOLUTE 0.18 10/3/uL (0.0-0.53); HEMOGLOBIN 9.1 g/dL (12.0-16.0); IMMATURE GRANULOCYTES 0.2 %; IMMATURE GRANULOCYTES ABSOLUTE 0.02 10/3/uL (0.0-0.11); LYMPHOCYTES 14.3 %; LYMPHOCYTES ABSOLUTE 1.17 10/3/uL (0.67-4.30); MEAN CORPUS HGB CONC 32.5 g/dL (32.0-36.0); MEAN CORPUSCULAR HEMOGLOB 31.1 pg (26.0-34.0); MEAN CORPUSCULAR VOLUME 95.6 fL (80-100); MEAN PLATELET VOLUME 11.5 fL (9.2-13.0); MONOCYTES 9.7 %; MONOCYTES ABSOLUTE 0.79 10/3/uL (0.21-1.20); NEUTROPHILS 73.5 %; NEUTROPHILS ABSOLUTE 6.01 10/3/uL (2.02-8.40); PLATELET COUNT 244 10/3/uL (150-400); RBC DISTRIBUTION WIDTH 13.9 % (12.0-16.0); RED CELL COUNT 2.93 10/6/uL (4.0-5.6); WHITE BLOOD CELLS 8.2 10/3/uL (4.5-10.5)
[2016-07-26 07:35] LABS: MANUAL DIFF NO %
[2016-07-26 07:57] LABS: PLATELET ESTIMATE ADQ (ADEQUATE); RBC MORPHOLOGY NORM (NORMAL)
== END 2016-07-26 14:48 | DRG 460 ==
LOC: ER 23:53 → 2SO 07-16 03:27
PROVIDERS: Hospitalist; Internal Medicine; Orthopaedic Surgery Orthopaedic Surgery of the Spine; Specialist
PROC: 0SG00AJ Fusion of Lumbar Vertebral Joint with Interbody Fusion Device, Posterior Approach, Anterior Column, Open Approach (ICD-10-PCS; 2016-07-16)
PROC: 0SG0071 Fusion of Lumbar Vertebral Joint with Autologous Tissue Substitute, Posterior Approach, Posterior Column, Open Approach (ICD-10-PCS; 2016-07-16)
PROC: 0ST20ZZ Resection of Lumbar Vertebral Disc, Open Approach (ICD-10-PCS; principal; 2016-07-21)
PROC: 4A11X4G Monitoring of Peripheral Nervous Electrical Activity, Intraoperative, External Approach (ICD-10-PCS; 2016-07-21)
DX: M48.07 Spinal stenosis, lumbosacral region (principal); N17.9 Acute kidney failure, unspecified; E11.42 Type 2 diabetes mellitus with diabetic polyneuropathy; K76.0 Fatty (change of) liver, not elsewhere classified; E66.01 Morbid (severe) obesity due to excess calories; D50.9 Iron deficiency anemia, unspecified; F32.9 Major depressive disorder, single episode, unspecified; G47.33 Obstructive sleep apnea (adult) (pediatric); W18.39XA Other fall on same level, initial encounter; Y93.9 Activity, unspecified; Y92.009 Unspecified place in unspecified non-institutional (private) residence as the place of occurrence of the external cause; M19.90 Unspecified osteoarthritis, unspecified site; N18.3 Chronic kidney disease, stage 3 (moderate); E78.00 Pure hypercholesterolemia, unspecified; K21.9 Gastro-esophageal reflux disease without esophagitis; I44.7 Left bundle-branch block, unspecified; F41.9 Anxiety disorder, unspecified; E78.5 Hyperlipidemia, unspecified; Z98.890 Other specified postprocedural states; Z88.8 Allergy status to other drugs, medicaments and biological substances; Z88.5 Allergy status to narcotic agent; Z88.6 Allergy status to analgesic agent; Z82.49 Family history of ischemic heart disease and other diseases of the circulatory system; Z83.3 Family history of diabetes mellitus; Z84.1 Family history of disorders of kidney and ureter; Z68.33 Body mass index [BMI] 33.0-33.9, adult
CPT/HCPCS: 36415; 71010; 72148; 73502-RT; 73560-RT; 80048; 80053; 81001; 82550; 82553; 82962; 83036; 83735; 83880; 84443; 84484; 85025; 85610; 85730; 86850; 86900; 86901; 87641; 88304; 88311; 93005; 96374; 97110-GP; 97116-GP; 97162-GP; 97163-GP; 97530-GP; 99285; A9270-GY; C1713; J0690; J1644; J2250; J2270; J2405; J2710; J3010